=== PATIENT | male | born 1975 | race Two or more races ===

== ENCOUNTER 2017-10-07 15:04 | Emergency (ER) | payer MEDICAID ==
[~2017-10-07] VITALS: Ht 165.1 cm; Wt 60.4 kg
--- NOTE | 2017-10-07 15:15 | NUR ---
PRESENTS TO ER C/O L SIDED CHEST PAIN SINCE YESTERDAY, WORSENING DURING INSPIRATION AND COUGHING. PATIENT IS A/OX 4. BREATHING EVEN AND UNLABORED. NO SOB, NO DISTRESS. VITALS STABLE. SAFETY AND COMFORT MEASURES IN PLACE. AWAITING MD ORDERS.
--- NOTE | 2017-10-07 16:25 | NUR ---
NEW IV STARTED ON RAC, 18G, BLOOD DRAWN AND SENT TO LAB.
[2017-10-07 16:32] LABS: BASOPHILS % (AUTO) 0.5 % (0.0-2.0); EOSINOPHILS # (AUTO) 0.1 /CMM (0.0-0.7); EOSINOPHILS % (AUTO) 0.9 % (0.0-6.0); HEMATOCRIT 42 % (39-51); HEMOGLOBIN 14.7 g/dL (13.5-17.5); LYMPHOCYTES # (AUTO) 3.4 /CMM (0.8-4.8); MEAN CORPUSCULAR HEMOGLOBIN 31 PG (26.0-33.0); MEAN CORPUSCULAR HGB CONC 35 g/dl (31.0-36.0); MEAN CORPUSCULAR VOLUME 89 fL (80-96); MONOCYTES # (AUTO) 0.6 /CMM (0.1-1.30); NEUTROPHILS # (AUTO) 4.5 /CMM (1.8-8.9); NEUTROPHILS % (AUTO) 52.6 % (43.0-81.0); PLATELET COUNT (AUTO) 214 /CMM (150-450); RDW COEFFICIENT OF VARIATION 13.5 (11.5-15.0); RED BLOOD CELL COUNT(AUTO) 4.72 MIL/uL (4.5-6.0); WHITE BLOOD COUNT (AUTO) 8.6 K/uL (4.3-11.0)
[2017-10-07 16:44] LABS: CALCIUM, SERUM 8.7 mg/dL (8.5-10.1); CARBON DIOXIDE 25 mmol/L (21-32); CHLORIDE 102 mmol/L (98-107); CREATININE 0.7 mg/dL (0.6-1.3); GLUCOSE 102 mg/dL (74-106); POTASSIUM 3.7 mmol/L (3.5-5.1); SODIUM SERUM 138 mmol/L (136-145); UREA NITROGEN, BLOOD 10 mg/dL (7-18)
[2017-10-07 16:51] LABS: TROPONIN I < 0.017 ng/mL (0.00-0.056)
[2017-10-07] MEDS ORDERED: KETOROLAC TROMETHAMINE INJ 30 MG/ML VIAL IV ONE (17:30)
[2017-10-07] MEDS ORDERED: KETOROLAC TROMETHAMINE INJ 30 MG/ML VIAL ONE (17:32)
--- NOTE | 2017-10-07 17:36 | NUR ---
PATIENT MEDICATED PER MD ORDERS.
--- NOTE | 2017-10-07 17:55 | NUR ---
IV removed. Catheter intact and site benign. Pressure and 4x4 applied to site. No bleeding noted. Patient discharged to home in stable condition. Written and verbal after care instructions given. Patient verbalizes understanding of instruction.
[2017-10-07 18:01] VITALS: BP 114/82
== END 2017-10-07 18:02 | disposition home or self-care (01) ==
LOC: ER 15:07
DX: R07.89 Other chest pain (principal); F17.200 Nicotine dependence, unspecified, uncomplicated
CPT/HCPCS: 36415; 71045; 80048; 84484; 85025; 93005 ×2; 96374; 99285; A4606; J1885; Z7610

== ENCOUNTER 2020-04-02 04:26 | Emergency (ER) | payer OTHER ==
[~2020-04-02] VITALS: Ht 172.7 cm; Wt 63.5 kg
[2020-04-02 04:30] VITALS: BP 108/65
--- NOTE | 2020-04-02 04:51 | NUR ---
XRAY AT BEDSIDE.
[2020-04-02] MEDS ORDERED: HYDROCODONE/APAP 5/325MG TABLET PO ONE (06:00)
[2020-04-02] MEDS ORDERED: HYDROCODONE/APAP 5/325MG TABLET ONE (06:02)
--- NOTE | 2020-04-02 06:08 | NUR ---
Patient discharged to home in stable condition. Written and verbal after care instructions given. Patient verbalizes understanding of instruction.
== END 2020-04-02 06:10 | disposition home or self-care (01) ==
LOC: ER 04:35
DX: S62.316A Displaced fracture of base of fifth metacarpal bone, right hand, initial encounter for closed fracture (principal); F17.200 Nicotine dependence, unspecified, uncomplicated; W01.0XXA Fall on same level from slipping, tripping and stumbling without subsequent striking against object, initial encounter; Y93.01 Activity, walking, marching and hiking; Y92.89 Other specified places as the place of occurrence of the external cause; Y99.8 Other external cause status
CPT/HCPCS: 73110; 73130-TC

== ENCOUNTER 2020-04-02 06:42 | Emergency (ER) | payer OTHER ==
[~2020-04-02] VITALS: Ht 172.7 cm; Wt 63.5 kg
--- NOTE | 2020-04-02 06:45 | NUR ---
PT AAOX4. BIBFAMILY, C/OR GREAT TO PAIN S/P SLIPPED AND FALLING OFF STAIRS. SEEN IN THE E.D. FOR R HAND PAIN S/P TRIP AND FALL. PT WAS DISCHARBGED. AFTER BEING DISCHARGED CAME BACK AND STATED "MY FOOT PAIN WAS NOT SERIOUS, BUT NOW IT HURTS." PT UNABLE TO AMBULATE WITH STEADY GAIT. MD AT BEDSIDE FOR EVAL. AWAITING RADIOLOGY FOR XRAY.
--- NOTE | 2020-04-02 07:07 | NUR ---
RADIOLOGY AT BEDSIDE
[2020-04-02 07:34] VITALS: BP 116/66
--- NOTE | 2020-04-02 07:34 | NUR ---
Patient discharged to home in stable condition. Written and verbal after care instructions given. Patient verbalizes understanding of instruction.
== END 2020-04-02 07:34 | disposition home or self-care (01) ==
LOC: ER 07:07
DX: S93.691A Other sprain of right foot, initial encounter (principal); F17.200 Nicotine dependence, unspecified, uncomplicated; W01.0XXA Fall on same level from slipping, tripping and stumbling without subsequent striking against object, initial encounter; Y93.89 Activity, other specified; Y92.89 Other specified places as the place of occurrence of the external cause; Y99.8 Other external cause status
CPT/HCPCS: 73630-TC